=== PATIENT | male | born 1960 | race Caucasian/White ===

== ENCOUNTER 2025-01-08 10:19 | Emergency (ER) | payer MEDICARE, MEDICAID, SELFPAY ==
[2025-01-08 10:25] VITALS: BP 124/88
--- NOTE | 2025-01-08 10:35 | EDRN ---
Pt just approached this RN aggressively and would not go back into room.
--- NOTE | 2025-01-08 10:39 | EDRN ---
Security in room w/ pt. Pt is continuing to yell at security and being repetitive.
--- NOTE | 2025-01-08 10:40 | EDRN ---
This RN fearing for her safety requested assistance as am in this area alone from pharmacist in charge who has declined. bounty trapper did say one to one but pt is very very aggressive and abusive even w/ security. Pt is totally uncooperative.
--- NOTE | 2025-01-08 10:42 | EDRN ---
Pt is in a cervical collar that is not on correctly. This RN is afraid to adjust pt's collar.
--- NOTE | 2025-01-08 10:52 | EDRN ---
After security saw pt pt has stopped repetive loud speaking. Pt is sl calmer. One to one in place w/ ED PCT [place] at this time.
--- NOTE | 2025-01-08 11:10 | EDRN ---
Dr. Reid was in to see pt and said she is consulting Dr. Lugo Psychiatrist on pt. One to One remains on pt at this time w/[place] ED PCT. Pt remains agitated and aggressive verbally but is remaining on stretcher since security spoke w/ pt. Pt
remains in room #13 at this time.
--- NOTE | 2025-01-08 11:28 | ED.GENMED ---
History of Present Illness
General
Chief Complaint: Psychiatric Problem
Source: patient
Time Seen by Provider: 01/08/25 11:06
History of Present Illness
History of Present Illness:
64-year-old male presents emergency department because of reportedly increasing aggressive behaviors associated with auditory hallucinations. Patient has a history of schizophrenia and has been noncompliant with the Risperdal that he typically
takes. Here in the emergency department, patient is relatively calm and not aggressive towards me. However, he is resistant to any interventions here. He talks about the government coming to get him, and other thoughts that are not making sense.
Speech clear. No specific physical complaints.
Past History
Past History
ED Past Medical History: Hypercholesterolemia and Psychiatric (Bipolar/Schizophrenia)
ED Past Surgical History: Orthopedic
Social History
Tobacco: Smoker
Alcohol: None
Drug: None
Personal: Single
Living: with family
Phy Exam
Physical Exam
Physical Exam:
GENERAL: Alert , in no apparent distress, unkempt
EYE: pupils equal and reactive
NECK: Supple, no significant adenopathy, healing surgical scar noted without infection.
ENT: o/p clr, mm slightly dry
CARDIAC: Regular rate and rhythm .
LUNGS: Clear breath sounds bilaterally, no acute respiratory distress, no wheezes/rales/rhonchi
ABDOMEN: Soft, without focal tenderness, no r/g,
NEUROLOGICAL: Alert and oriented, no focal neuro deficits
SKIN: Warm and dry, skin intact.
MUSCULOSKELETAL: No edema, well perfused.
PSYCH: Bizarre behavior, talks about gov't coming to get him, etc.
Course
Orders/Labs/Results
Orders:
Orders
01/08/25 11:33
Risperidone [Risperdal] 2 mg PO NOW STA
01/08/25 11:35
Consult Psychiatry [PSYCHIATRY CONSULT] Urgent
Consulting Provider: Emigdio Mena
Was physician already notified: Yes
Vital Signs
Initial and Last Documented VS:
Initial Vital Signs
Temp Pulse Resp BP Pulse Ox
98.7 F 83 16 124/88 99
01/08/25 10:25 01/08/25 10:25 01/08/25 10:25 01/08/25 10:25 01/08/25 10:25
Last Documented Vital Signs
Temp Pulse Resp BP Pulse Ox
98.7 F 83 16 124/88 99
01/08/25 10:25 01/08/25 10:25 01/08/25 10:25 01/08/25 10:25 01/08/25 10:25
Update Note
Update Note:
Patient presents to the Emergency Department with ___increasing aggression
Number and Complexity of Problems Addressed at the Encounter
� Chronic conditions affecting care:
� Acute Exacerbation and/or Progression of Chronic Illness:
� Differential Diagnosis includes: But not limited to medication noncompliance, acute psychiatric illness, etc. etc.
Amount and/or Complexity of Data to be Reviewed and Analyzed
� I performed an independent evaluation of and my interpretation is:
EKG:
CT:
Xrays:
Laboratory Studies:
Other:
� Review of other/old records reveals:
� Clinical information was obtained by an independent historian:
� Prescriptions/Medications Considered but not given:
� Further testing considered but not performed:
Risk of Complications and/or Morbidity or Mortality of Patient Management
� Social determinants of health affecting care:
� Discussion with other providers (PCP, Hospitalists, Consultants, etc):
� Escalation of care including admission/observation vs risk of discharge considered: 11:36 AM [place] text sent to Dr. Enriquez regarding request for consult.
PT seen by Dr Mena, does not meet criteria for 302/201. He has been compliant and calm here for me, ate a full meal. PT should be taking invega 6 mg bid, and [facility] did not have initially---just got in yesterday--and he was refusing to take unless
someone from [facility] gave him. However, not upon conversation with me, he commits to being cooperative and taking med at [facility]. Case d/w Huong LAWSON who is aware, and his brother, Jama, who are all aware.
ED Attending Note
-
Portions of this chart may have been created with voice recognition software.� Occasional wrong word or��sound alike� substitutions may have occurred due to the inherent limitations of voice recognition software.
Discharge Plan
Departure
Patient Disposition: Penitentiary/SNF
Date of Disposition: 01/08/25
Time of Disposition: 14:16
Patient with high blood pressure during this ER visit?: Yes
Condition: Good
Discharge Problem:
Schizophrenia
Instructions: Schizophrenia (DC)
Prescriptions:
No Action
Unobtainable
0
Referrals:
UNKNOWN - PT DOES,NOT KNOW [Family Provider] -
Activity Restrictions/Additional Instructions:
PLEASE TAKE YOUR INVEGA DIRECTED. IF YOU DEVELOP CHEST PAIN, TROUBLE BREATHING, FEVER, VOMITING, DIZZINESS, OR OTHER WORRISOME SIGNS, GO TO THE ER IMMEDIATELY!
Interventions
Interventions:
*Risk Screen - Suicide Last Done: 01/08/25 10:31
*General Assessment Last Done: 01/08/25 10:31
*Neglect/Abuse Screening Last Done: 01/08/25 10:31
*ED- Fall Risk Assessment Last Done: 01/08/25 10:31
*ED COVID-19 Vaccine History Last Done: 01/08/25 10:33
ED-Psychological Assessment Last Done: 01/08/25 10:36
Discharge Date and Time
Print Language: ARABIC
--- NOTE | 2025-01-08 11:48 | EDRN ---
Pt would not take resperidol saying, 'that is not my doctor. I am not taking resperidol.'
--- NOTE | 2025-01-08 12:14 | EDRN ---
This RN asked pt if she could adjust neck collar. Pt refused at this time. Collar is very loose and not in correct position. Pt has told ED PCT that he loosened it and does not wish it tight w/in this RN's hearing.
--- NOTE | 2025-01-08 13:43 | CS.PSYCHR ---
Consult Summary - Psychiatry
-
Pt is a 64 yo male with hx of Schizophrenia, followed by [facility], brought in from [facility], reportedly not taking antipsychotic medication, having auditory hallucinations and more aggressive. Pt seen, sitting up on
stretcher, alert, oriented, stating he does not want to go back to [facility] (inpatient psych facility). Pt refused Risperidone earlier, states his medication is Invega 6 mg BID, states it helps him and he is willing to take it. Invega in
non-formulary at . Talked with Crisis/ER director also spoke with Crisis staff regarding seeing if the ACT Team could bring pt's Invega. Pt appears somewhat irritable, but not threatening, not physically agitated. No overt hallucinations during
interview. Pt denies SI.
Psych Hx: Schizophrenia, multiple inpatient admissions, last on 01/01/25; [facility]
PMH: pt reports he takes a statin cholesterol
MSE: alert, oriented, sitting on stretcher, wearing cervical brace loosely, disheveled. Speech circumstantial, with persecutory thought content. Denies SI, no overt HI, no overt hallucinations. Insight limited; he does agree to take prescribed
Invega 6 mg BID
Imp: Schizophrenia, appears at or near chronic baseline with mild paranoia and irritability. Pt is not physically agitated or threatening
Rec: Return to nursing facility with [facility] (most intensive service available for outpatients). Pt does not present grounds for involuntary commitment here, and is not seeking voluntary admission. Unless a witness to aggressive
behavior due to psychosis is filing a 302, pt should be discharged
Will follow
[2025-01-08 14:37] VITALS: BP 117/72
--- NOTE | 2025-01-08 14:38 | EDRN ---
Discharge plan reviewed w/ pt at this time. Pt is much calmer. Pt is going back to [facility]. Pt agreed to take his Invega that Dr. Reid said is available at the SNF. Dr. Reid spoke to Barbara about pt at the facility and pt's brother.
Discharge plan reviewed w/ pt and pt agreed to take invega. Pt calm and cooperative. Still very talkative but no longer agitated, angry or aggressive. Acute Care ambulance to pick pt up at 16:00-16:30.
--- NOTE | 2025-01-08 14:43 | EDRN ---
Report called to Maritza TIDWELL at [facility] who said that pt will not take med and will refuse it.
== END 2025-01-08 15:00 ==
LOC: EMR 10:19
PROVIDERS: CONSULT PHYSICIAN Psychiatry & Neurology Psychiatry; EMERGENCY PHYSICIAN Emergency Medicine
DX: F20.9 Schizophrenia, unspecified (principal); E78.00 Pure hypercholesterolemia, unspecified; F17.200 Nicotine dependence, unspecified, uncomplicated; Z91.148 Patient's other noncompliance with medication regimen for other reason
CPT/HCPCS: 99283